=== PATIENT | male | born 1985 | race Caucasian/White ===

== ENCOUNTER 2025-03-09 08:46 | Emergency (ER) | payer BC, SELFPAY ==
--- NOTE | ~2025-03-09 | US_ITS ---
ADDENDUM #1 The previous report erroneously included two templates. The corrected report is as follows: EXAMINATION: US SCROTUM HISTORY: L sided scrotal pain and swelling. COMPARISON: There are no prior studies for comparison. FINDINGS: Real-time grayscale ultrasound imaging of the scrotum was performed. Color and spectral Doppler analysis was also performed. RIGHT TESTICLE: The right testis measures 4.7 x 2.3 x 3.0 cm and demonstrates normal homogeneous echotexture. No masses are seen. The right testis demonstrates normal arterial and venous color Doppler and spectral waveforms. RIGHT EPIDIDYMIS: Normal in size, shape, and vascularity. LEFT TESTICLE: The left testis measures 4.4 x 2.2 x 3.2 cm and demonstrates normal homogeneous echotexture. No masses are seen. The left testis demonstrates normal arterial and venous color Doppler and spectral waveforms. LEFT EPIDIDYMIS: Normal in size, shape, and vascularity. However, there is a somewhat tubular appearing structure adjacent to the epididymal head which appears slightly hypervascular and may represent an inflamed spermatic cord. VARICOCELE: None. HYDROCELE: No significant hydrocele is seen. OTHER COMMENTS: None. IMPRESSION: Possible inflamed spermatic cord adjacent to the left epididymal head. Otherwise unremarkable scrotal ultrasound. Electronically signed by: Saman Ortega MD 03/09/2025 12:03 PM EDT
--- NOTE | ~2025-03-09 | US_ITS ---
EXAMINATION: US SCROTUM HISTORY: L sided scrotal pain and swelling. COMPARISON: EXAMINATION: US SCROTUM HISTORY: L sided scrotal pain and swelling. COMPARISON: There are no prior studies for comparison. FINDINGS: Real-time grayscale ultrasound imaging of the scrotum was performed. Color and spectral Doppler analysis was also performed. RIGHT TESTICLE: The right testis measures 4.7 x 2.3 x 3.0 cm and demonstrates normal homogeneous echotexture. No masses are seen. The right testis demonstrates normal arterial and venous color Doppler and spectral waveforms. RIGHT EPIDIDYMIS: Normal in size, shape, and vascularity. LEFT TESTICLE: The left testis measures 4.4 x 2.2 x 3.2 cm and demonstrates normal homogeneous echotexture. No masses are seen. The left testis demonstrates normal arterial and venous color Doppler and spectral waveforms. LEFT EPIDIDYMIS: Normal in size, shape, and vascularity. However, there is a somewhat tubular appearing structure adjacent to the epididymal head which appears slightly hypervascular and may represent an inflamed spermatic cord. VARICOCELE: None. HYDROCELE: No significant hydrocele is seen. OTHER COMMENTS: None. US/US scrotum IMPRESSION: Possible inflamed spermatic cord adjacent to the left epididymal head. Otherwise unremarkable scrotal ultrasound. FINDINGS: Real-time grayscale ultrasound imaging of the scrotum was performed. RIGHT TESTICLE: The right testis measures cm and demonstrates normal homogeneous echotexture. No masses are seen. The right testis demonstrates normal color Doppler flow. RIGHT EPIDIDYMIS: Normal in size, shape, and vascularity. LEFT TESTICLE: The left testis measures cm and demonstrates normal homogeneous echotexture. No masses are seen. The left testis demonstrates normal color Doppler flow. LEFT EPIDIDYMIS: Normal in size, shape, and vascularity. VARICOCELE: None. HYDROCELE: No significant hydrocele is seen. OTHER COMMENTS: None. IMPRESSION: Unremarkable scrotal ultrasound. Electronically signed by: Saman Ortega MD 03/09/2025 11:38 AM EDT RP
[2025-03-09 08:49] VITALS: BP 194/104; PULSE 116; RESP 16; TEMP 36.8; O2SAT 100; BMI 22.9
--- NOTE | 2025-03-09 09:06 | ED_ITS ---
HPI - Male Genitourinary General Chief complaint: Urogenital-Male Stated complaint: Testicular issues Time Seen by Provider: 03/09/25 09:06 Source: patient, RN notes reviewed and old records reviewed Mode of arrival: ambulatory Limitations: no limitations History of Present Illness ED Provider: Morris SINGH Narrative: Patient is a 40-year-old male presenting to the emergency department with complaint of left sided scrotal pain since which has been progressively worsening. Denies difficulty urinating, dysuria, penile discharge. Denies rash/erythema. Denies fever. Denies new sexual partners or concern for STIs. Rates pain at 2/10 at rest, 10/10 with movement. Denies abdominal pain, nausea, vomiting. MD Complaint: testicle pain Onset (ago): day(s) Duration: progressively worsening Location: left testicle Quality: aching Exacerbating factors: palpation and movement Related Data Previous Rx's ?Medication ?Instructions ?Recorded levofloxacin 500 mg tablet 500 mg PO BID 10 days #20 tabs 03/09/25 Allergies Allergy/AdvReac Type Severity Reaction Status Date / Time No Known Allergies Allergy Verified 03/09/25 08:54 Review of Systems Review of Systems: As per HPI Yes all other systems are reviewed and are negative Constitutional: Constitutional: Reports as per HPI [facility] Social History Social History Smoked in Last 30 Days: No Use of substances other than those prescribed or required for medical reasons: No Advance Directives: No Advance Directives Information Provided: Yes Physical Exam Vital Signs: Vital Signs: Last Vital Signs Temp 98 F 03/09/25 13:13 Pulse 75 03/09/25 13:13 Resp 16 03/09/25 13:13 BP 129/76 03/09/25 13:13 Pulse Ox 100 03/09/25 13:13 O2 Del Method Room Air 03/09/25 13:13 BMI result Body Mass Index 22.9 Vital signs have been reviewed and appear to be correct. Blood pressure normal. Heart rate normal. Respiratory rate normal. Temperature normal. Oxygen saturation normal. Const: General: cooperative, healthy appearing and no acute distress Orientation/consciousness: oriented to person, oriented to place, oriented to time and patient oriented x3 Limitations: no limitations HEENT: Head: Yes normocephalic and Yes atraumatic Ears: external ears normal General nose exam: Normal external nose present Face and sinus: Yes face symmetric Mouth: oropharynx normal and moist mucous membranes Throat: Yes uvula midline Eyes: Pupils: Equal, round and reactive pupils present Neck: Neck: Yes normal visual inspection and Yes supple Resp: Effort & Inspection: normal respiratory effort and able to speak in complete sentences Auscultation: clear to auscultation bilaterally Cardio: Rate: regular rate Rhythm: regular rhythm Heart sounds: S1 normal heart sound present and S2 normal heart sound present GI: Palpation (GI): Soft to palpation and nontender Auscultation: normoactive bowel sounds : Other: Exam chaperoned by BEVERLY Phelps General: Yes no CVA tenderness Penis: normal penis Scrotum: scrotum normal, no ecchymosis, not edematous, not erythematous, testes descended bilaterally, no inguinal hernias, no masses and no scrotal swelling Testes: Testes normal, testicular lie normal, epididymal induration on the left and epididymal tenderness on the left Back/Spine/Pelvis: Back: no CVA tenderness Skin: General skin exam: elasticity normal and turgor normal Neuro: General: oriented to person, oriented to place, oriented to time, patient oriented x3, moves all extremities, no focal motor deficits and CN's II- XI intact bilaterally Cranial nerves: Yes Equal, round and reactive pupils present Cognition (Neuro): normal cognition Extrem: General: Yes full ROM, Yes no pedal edema and Yes no calf tenderness Psych: Mental Status: mental status grossly normal Affect: normal affect Thought process: Normal thought process present Medications Administered Discontinued Medications Generic Name Dose Route Start Last Admin Trade Name Freq PRN Reason Stop Dose Admin Ibuprofen 600 mg 03/09/25 09:33 03/09/25 09:38 Ibuprofen 600 Mg Tablet PO 03/09/25 09:34 600 mg ONCE ONE Administration Medical Decision Making Medical Decision Making [facility] Narrative: Patient is a 40-year-old male presenting to the emergency department with complaint of left sided scrotal pain since which has been progressively worsening. On exam patient is awake, A+Ox3, VS WNL, afebrile, normal neurological exam without focal deficits, physical exam findings as above. Given reported symptoms and physical exam findings, initial differential includes but is not limited to epididymitis, UTI, STI. Unlikely torsion. UA is without evidence of infection. Ultrasound notable for inflamed left spermatic cord. My interpretation is in agreement with the radiologist's interpretation. Will treat for epididymitis with levofloxacin as CT NG negative. Will refer to urology to follow up. Return precautions discussed. Patient verbalized understanding of and agreement with plan. Differential Diagnosis Differential Diagnoses: The differential diagnosis associated with the presentation includes As per [facility] Lab Data [facility] Lab Attestation statement: I reviewed the patient's lab results. As per [facility] Labs: Lab Results 03/09/25 Range/Units 10:20 Urine Color Yellow Urine Appearance Clear Urine pH 6.5 (5.0-9.0) Ur Specific [place] 1.015 (1.005-1.025) Urine Protein Negative (Neg-Trace) mg/dL Urine Glucose (UA) Negative (Negative) mg/dL Urine Ketones Trace (Negative) mg/dL Urine Blood Negative (Negative) Urine Nitrite Negative (Negative) Ur Leukocyte Esterase Negative (Negative) Chlam trachomat DNA PCR NOT DETECTED (Not Detect.) N.gonorrhoeae DNA (PCR) NOT DETECTED (Not Detect.) Independent Interpretation I performed an independent interpretation of an: Ultrasound Interpretation: Left inflamed spermatic cord on ultrasound. Radiology Impression Discussion of test interpretation with radiology: I have reviewed the radiologist's reading. Radiologist Impression: US/US scrotum IMPRESSION: Possible inflamed spermatic cord adjacent to the left epididymal head. Otherwise unremarkable scrotal ultrasound. External Record Review External record reviewed: Inpatient record, Office record and Outpatient record Prescription Management I considered prescription management with: Antibiotic Discharge Plan Discharge Clinical Impression: Epididymitis Patient Disposition: Home, Self-Care Instructions: Levofloxacin (By mouth), Epididymitis (ED) Additional Instructions: You were evaluated in the emergency department today for testicular pain. Your exam and ultrasound show evidence of epididymitis and you are being treated with antibiotics. Take the full course as prescribed even if your symptoms improve. We recommend that you follow up with Urology, call their office to schedule an appointment, they will not call you. We recommend 600 mg of ibuprofen or 650 mg Tylenol every 6 hours as needed for pain. If necessary, you can alternate these medications every 3 hours. For example, at 9:00 a.m. take Tylenol, then at noon take ibuprofen, then at 3:00 p.m. take Tylenol, etc.. Return to the emergency department if you develop worsening pain, fever, inability to urinate, penile discharge, or any other new or concerning symptoms. Prescriptions: New levofloxacin 500 mg tablet 500 mg PO BID 10 Days Qty: 20 0RF Referrals: [facility] [place] [facility] [Provider Group] - 1 week (Left epididymitis) Stand Alone Forms: Work/School Release Print Language: Cameroonian
[2025-03-09] MEDS: Ibuprofen 600 MG TABLET PO (09:38)
[2025-03-09 10:12] VITALS: BP 138/91; PULSE 76; RESP 16; TEMP 36.6; O2SAT 98
[2025-03-09 10:28] LABS: Appearance Urine Clear; Color Urine Yellow; Glucose Urine UA Negative (Negative); Leukocyte Esterase Urine Negative (Negative); Nitrite Urine Negative (Negative); PH 6.5 (5.0-9.0); Specific Gravity - Urine 1.015 (1.005-1.025); Urine Blood Negative (Negative); Urine Ketones Trace mg/dL (Negative); Urine Protein Negative (Neg-Trace)
[2025-03-09 12:18] LABS: CT PCR NOT DETECTED (Not Detect.); NG PCR NOT DETECTED (Not Detect.)
--- NOTE | 2025-03-09 12:22 | PC.NURSE ---
Pt resting quietly in room; denies pain at this time; awaiting dispo; will cont to treat per orders
[2025-03-09 13:13] VITALS: BP 129/76; PULSE 75; RESP 16; TEMP 36.6; O2SAT 100
== END 2025-03-09 13:39 | disposition home or self-care (01) ==
PROVIDERS: Emergency Provider Emergency Medicine
DX: N45.1 Epididymitis (principal); N50.82 Scrotal pain
CPT/HCPCS: 76870; 81003; 87491; 87591; 93975; 99284

== ENCOUNTER → 2025-03-09 08:56 | Outpatient (BNV) | payer BC, SELFPAY | PROVIDERS: Emergency Provider Emergency Medicine; Visit Provider Radiology Diagnostic Radiology | DX: N50.82 Scrotal pain (principal) | CPT/HCPCS: 76870; 93975 ==

== ENCOUNTER 2025-05-24 14:34 | Outpatient (REF) | payer BC, SELFPAY | END 2025-05-24 14:35 | disposition home or self-care (01) | LOC: HO.LNP 14:34 | PROVIDERS: Visit Provider Nurse Practitioner Family | DX: R31.29 Other microscopic hematuria (principal) | CPT/HCPCS: 81003; 88112 ==

== ENCOUNTER 2025-05-24 14:34 | Outpatient (AMB) | payer BC, SELFPAY ==
--- NOTE | 2025-05-24 14:59 | MHC.OFFVIS ---
Intake Visit Reasons: epidiymitis Intake Note: New Patient presents for initial visit for epididymitis Urology Medications: none Blood Thinner: none Sr. Logistics Analyst Required: No Accompanied by: Self / Same As Patient Allergies No Known Allergies Allergy (Verified 05/24/25 15:33) Medication List - Last Reconciled 05/24/25 by ELIANE Dorantes No Known Home Meds HPI Comments Details: Wilfred is a very pleasant 40-year-old male patient. He presents to the office today as a new patient for epididymitis. In discussion with the patient today he reports having seeked emergency room care approximately 3 months ago for ongoing left-sided scrotal pain he had been experiencing at which time a scrotal ultrasound was ordered and performed. These results were reviewed and communicated with the patient today 03/18 possible inflamed spermatic cord adjacent to the left epididymal head. Otherwise unremarkable scrotal ultrasound. He reports he completed antibiotic therapy of levofloxacin as prescribed. He reports pain has significantly improved however he does feel he continues to experience episodes of left-sided scrotal discomfort with running. On exam today the penis is uncircumcised. There are no open areas, lesions, or masses palpated throughout the area. There was left-sided epididymal head tenderness noted with small epididymal head cyst otherwise no pain elicited on exam. In office urinalysis results reviewed with the patient today. He reports he is not currently sexually active. It appears STI workup was ordered and performed and within normal limits. When asked he denies urinary urgency, urinary frequency, incontinence, nocturia, hematuria, dysuria, foul smelling urine, changes to urinary stream, flank pain, fever, and or chills. He is happy with his current voiding parameters. He denies any abdominal pain, nausea, and or vomiting. He otherwise offers no other issues or concerns at this time. Review of Systems Const All systems reviewed & are unremarkable except as noted in HPI and below Physical Exam Const General: cooperative, healthy appearing, comfortable, no acute distress, well developed, alert and awake Nutritional Appearance: average body habitus Orientation/consciousness: patient oriented x3 Limitations: no limitations HEENT Head: Yes normal to inspection, Yes normocephalic and Yes atraumatic Ears: hearing grossly normal bilaterally Eyes General: appearance normal, both eyes and all related structures Neck Neck: Yes normal visual inspection and Yes trachea midline Chest Chest palpation & inspection: normal inspection of the chest Resp Effort & Inspection: normal respiratory effort and able to speak in complete sentences Cardio Rate: regular rate GI Inspection: Yes normal to inspection General: Yes no CVA tenderness Male General Exam: Yes normal external exam Penis: normal penis and uncircumcised Meatus: meatus normal Scrotum: Varicocele present on the left Testes: other (as per HPI) Back/Spine/Pelvis Back: no CVA tenderness Skin General skin exam: no rashes or lesions noted Neuro General: patient oriented x3 Extrem General: Yes normal to inspection Psych Appearance: grossly normal and well kempt Mental Status: mental status grossly normal Speech and movement: Normal speech and movement present and Clear speech present Affect: normal affect Attitude: cooperative Thought process: Normal thought process present Thought content: Normal thought content present Insight: Fair insight present (Psych) Judgement: Fair judgement present (Psych) Results AMB Urinalysis, Automated UA Leukoctes 0 Carlos/uL Last Edit by [facility] on 05/24/25 15:18 UA Nitrite Last Edit by [facility] on 05/24/25 15:18 UA Urobilinogen 0.2 mg/dL Last Edit by [facility] on 05/24/25 15:18 UA Protein 0 mg/dL Last Edit by [facility] on 05/24/25 15:18 UA pH 6.5 Last Edit by [facility] on 05/24/25 15:18 UA Blood 10 Uziel/uL Last Edit by [facility] on 05/24/25 15:18 UA Specific [place] 1.010 Last Edit by [facility] on 05/24/25 15:18 UA Ketone Last Edit by [facility] on 05/24/25 15:18 UA Bilirubin 0 mg/dL Last Edit by [facility] on 05/24/25 15:18 UA Glucose 0 mg/dL Last Edit by [facility] on 05/24/25 15:18 Results Reviewed Results Reviewed: Laboratory Last Values Urine pH (Auto) 6.5 05/24/25 15:02 Specific [place] (Auto) 1.010 05/24/25 15:02 Urine Protein (Auto) 0 mg/dL 05/24/25 15:02 Glucose (UA)(Auto) 0 mg/dL 05/24/25 15:02 Urine Blood (Auto) 10 Uziel/uL 05/24/25 15:02 Urine Bilirubin (Auto) 0 mg/dL 05/24/25 15:02 Urine Urobilinogen (Auto) 0.2 mg/dL 05/24/25 15:02 Leukocyte Esterase (Auto) 0 Carlos/uL 05/24/25 15:02 EXAMINATION: US SCROTUM HISTORY: L sided scrotal pain and swelling. COMPARISON: There are no prior studies for comparison. FINDINGS: Real-time grayscale ultrasound imaging of the scrotum was performed. Color and spectral Doppler analysis was also performed. RIGHT TESTICLE: The right testis measures 4.7 x 2.3 x 3.0 cm and demonstrates normal homogeneous echotexture. No masses are seen. The right testis demonstrates normal arterial and venous color Doppler and spectral waveforms. RIGHT EPIDIDYMIS: Normal in size, shape, and vascularity. LEFT TESTICLE: The left testis measures 4.4 x 2.2 x 3.2 cm and demonstrates normal homogeneous echotexture. No masses are seen. The left testis demonstrates normal arterial and venous color Doppler and spectral waveforms. LEFT EPIDIDYMIS: Normal in size, shape, and vascularity. However, there is a somewhat tubular appearing structure adjacent to the epididymal head which appears slightly hypervascular and may represent an inflamed spermatic cord. VARICOCELE: None. HYDROCELE: No significant hydrocele is seen. OTHER COMMENTS: None. IMPRESSION: Possible inflamed spermatic cord adjacent to the left epididymal head. Otherwise unremarkable scrotal ultrasound. Assessment & Plan Assessment & Plan (1) Epididymitis: Code(s): N45.1 - Epididymitis Category: Medical Plan In office urinalysis results reviewed with the patient today; as noted above. Recent scrotal ultrasound results reviewed with the patient today; as noted above. Patient reports significant improvement in scrotal discomfort however does feel he is limited with exertional exercise. We discussed wearing supportive underwear. He currently denies any bothersome urinary issues or concerns. He reports be happy with current voiding parameters. Will continue with surveillance monitoring at this time. Follow-up in 1-2 months; or sooner with any issues, concerns, and or questions. Orders: Orders AMB Urinalysis Automated Today Z13.9 - Encounter for screening, unspecified Medications: Discontinued levofloxacin Discontinued Reason: Patient Completed Course 500 mg PO BID 10 days 20 tabs 0RF Patient Instructions: The patient had an opportunity to ask questions regarding the treatment plan. All questions were answered. Physical exam, labs, and imaging were discussed and reviewed in detail. As well as risks, benefits, and discussion of treatment choices. No major barriers to understanding were identified. The patient expressed understanding and agreement with the above treatment plan. The patient was made aware they should contact our office by phone for worsening of their current condition, the appearance of new symptoms, or with any questions or concerns. Compliance is encouraged with any medications and follow up testing that is ordered. It is a privilege to be allowed the opportunity to participate in? your urological care.? Again, if you have any questions or concerns If you have any questions or concerns please do not hesitate to contact me. The office is [phone]. This note is constructed using voice recognition software. While every effort has been made to ensure accuracy hospital scientist errors may have been included. Yours sincerely, ELIANE Dorantes Coding Level of Care Code New Pt Level 3 (25768) Diagnoses Epididymitis N45.1
== END 2025-05-24 15:33 | disposition home or self-care (01) ==
LOC: HO.HUSH 14:35
PROVIDERS: Visit Provider Nurse Practitioner Family
DX: N45.1 Epididymitis (principal); Z13.9 Encounter for screening, unspecified
CPT/HCPCS: 99203

== ENCOUNTER 2025-06-30 14:18 | Outpatient (AMB) | payer BC, SELFPAY ==
--- NOTE | 2025-06-30 14:28 | A.OFFVIS_ITS ---
Intake Visit Reasons: 1m follow up Intake Note: Patient is present for 1M F/U Urology Medication:NONE Antibiotic Allergy:NONE Blood Thinner:NONE Copy Holder Required: No Allergies No Known Allergies Allergy (Verified 06/30/25 21:59) Medication List - Last Reconciled 06/30/25 by ELIANE Dorantes doxycycline hyclate 100 mg PO BID 14 days HPI Comments Details: Wilfred is a very pleasant 40-year-old male patient. He presents to the office today for follow-up of his epididymitis. In discussion with the patient today he does continue to experience episodes of left-sided testicular discomfort. In assessment of the patient today the penis is uncircumcised and patient with moderate discomfort upon palpation of left epididymis otherwise no open areas, lesions, and or masses palpated throughout the area. He does continue to feel he is restricted with exercise. He reports discomfort is intermittent however he does feel it has been manageable. He reports he continues to utilize heat and ice and does feel this has also been helpful. In office urinalysis results reviewed with the patient today. Previous workup has included a scrotal ultrasound 03/18 possible inflamed spermatic cord adjacent to the left epididymal head. Otherwise unremarkable scrotal ultrasound. He reports he completed antibiotic therapy of levofloxacin as prescribed. He reports pain has significantly improved however he does feel he continues to experience episodes of left-sided scrotal discomfort with running/ercises or at times prolonged sitting. He reports he is not currently sexually active. It appears STI workup was ordered and performed and within normal limits. When asked he denies urinary urgency, urinary frequency, incontinence, nocturia, hematuria, dysuria, foul smelling urine, changes to urinary stream, flank pain, fever, and or chills. He is happy with his current voiding parameters. He denies any abdominal pain, nausea, and or vomiting. He otherwise offers no other issues or concerns at this time. Review of Systems Const All systems reviewed & are unremarkable except as noted in HPI and below Physical Exam Const General: cooperative, healthy appearing, comfortable, no acute distress, well developed, alert and awake Nutritional Appearance: average body habitus Orientation/consciousness: patient oriented x3 Limitations: no limitations HEENT Head: Yes normal to inspection, Yes normocephalic and Yes atraumatic Ears: hearing grossly normal bilaterally Eyes General: appearance normal, both eyes and all related structures Neck Neck: Yes normal visual inspection and Yes trachea midline Chest Chest palpation & inspection: normal inspection of the chest Resp Effort & Inspection: normal respiratory effort and able to speak in complete sentences Cardio Rate: regular rate GI Inspection: Yes normal to inspection General: Yes no CVA tenderness Male General Exam: Yes normal external exam Penis: normal penis and uncircumcised Meatus: meatus normal Scrotum: Varicocele present on the left Testes: other (as per HPI) Back/Spine/Pelvis Back: no CVA tenderness Skin General skin exam: no rashes or lesions noted Neuro General: patient oriented x3 Extrem General: Yes normal to inspection Psych Appearance: grossly normal and well kempt Mental Status: mental status grossly normal Speech and movement: Normal speech and movement present and Clear speech present Affect: normal affect Attitude: cooperative Thought process: Normal thought process present Thought content: Normal thought content present Insight: Fair insight present (Psych) Judgement: Fair judgement present (Psych) Results AMB Urinalysis, Automated UA Leukoctes 0 Carlos/uL Last Edit by KANDIS Keith on 06/30/25 14:50 UA Nitrite Negative Last Edit by KANDIS Keith on 06/30/25 14:50 UA Urobilinogen 0.2 mg/dL Last Edit by KANDIS Keith on 06/30/25 14:5 0 UA Protein 0 mg/dL Last Edit by Naren Church CCM on 06/30/25 14:50 UA pH 6.0 Last Edit by Naren Church CCM on 06/30/25 14:50 UA Blood 0 Uziel/uL Last Edit by Naren Church CCM on 06/30/25 14:50 UA Specific [place] 1.010 Last Edit by KANDIS Keith on 06/30/25 14: 50 UA Ketone Negative Last Edit by KANDIS Keith on 06/30/25 14:50 UA Bilirubin 0 mg/dL Last Edit by Naren Church CCM on 06/30/25 14:50 UA Glucose 0 mg/dL Last Edit by Naren Church CCM on 06/30/25 14:50 Results Reviewed Results Reviewed: Laboratory Last Values Urine pH (Auto) 6.0 06/30/25 14:49 Specific [place] (Auto) 1.010 06/30/25 14:49 Urine Protein (Auto) 0 mg/dL 06/30/25 14:49 Glucose (UA)(Auto) 0 mg/dL 06/30/25 14:49 Urine Ketones (Auto) Negative 06/30/25 14:49 Urine Blood (Auto) 0 Uziel/uL 06/30/25 14:49 Urine Nitrite (Auto) Negative 06/30/25 14:49 Urine Bilirubin (Auto) 0 mg/dL 06/30/25 14:49 Urine Urobilinogen (Auto) 0.2 mg/dL 06/30/25 14:49 Leukocyte Esterase (Auto) 0 Carlos/uL 06/30/25 14:49 Assessment & Plan Assessment & Plan (1) Epididymitis: Code(s): N45.1 - Epididymitis Category: Medical Plan In office urinalysis results with the patient today; as noted above. We discussed epididymitis Start doxycycline as discussed and prescribed. We discussed OTC measures. All questions were answered. We discussed worsening symptoms He denies any bothersome urinary issues He reports be happy with current voiding parameters. Follow-up in 1 month; or sooner with any issues, concerns, and or questions. Orders: Orders AMB Urinalysis Automated Today Z13.9 - Encounter for screening, unspecified Medications: New doxycycline hyclate 100 mg PO BID 28 tabs 0RF 14 days N39.0 - Urinary tract infection, site not specified, N45.1 - Epididymitis Patient Instructions: The patient had an opportunity to ask questions regarding the treatment plan. All questions were answered. Physical exam, labs, and imaging were discussed and reviewed in detail. As well as risks, benefits, and discussion of treatment choices. No major barriers to understanding were identified. The patient expressed understanding and agreement with the above treatment plan. The patient was made aware they should contact our office by phone for worsening of their current condition, the appearance of new symptoms, or with any questions or concerns. Compliance is encouraged with any medications and follow up testing that is ordered. It is a privilege to be allowed the opportunity to participate in? your urological care.? Again, if you have any questions or concerns If you have any questions or concerns please do not hesitate to contact me. The office is [phone]. This note is constructed using voice recognition software. While every effort has been made to ensure accuracy warehouse operator errors may have been included. Yours sincerely, ELIANE Dorantes Coding Level of Care Code Est Pt Level 4 (56815) Diagnoses Epididymitis N45.1
== END 2025-06-30 15:11 | disposition home or self-care (01) ==
LOC: HO.HUSH 14:18
PROVIDERS: Visit Provider Nurse Practitioner Family
DX: N45.1 Epididymitis (principal); Z13.9 Encounter for screening, unspecified
CPT/HCPCS: 99214

== ENCOUNTER → 2025-06-30 14:18 | Outpatient (BNVA) | payer BC, SELFPAY | PROVIDERS: Visit Provider Nurse Practitioner Family | DX: N45.1 Epididymitis (principal) | CPT/HCPCS: 81003 ==

== ENCOUNTER 2025-08-10 15:34 | Outpatient (AMB) | payer BC, SELFPAY ==
--- NOTE | 2025-08-10 15:40 | MHC.OFFVIS ---
Intake Visit Reasons: 1m follow up Intake Note: Patient is present for 1M F/U Urology Medication:NONE Antibiotic Allergy:NONE Blood Thinner:NONE Director Career Services Required: No Allergies No Known Allergies Allergy (Verified 08/10/25 20:49) Medication List - Last Reconciled 08/10/25 by ELIANE Dorantes No Known Home Meds HPI Comments Details: Wilfred is a very pleasant 40-year-old male patient. He presents to the office today for follow-up of his epididymitis. In discussion with the patient today he does continue to experience episodes of left-sided testicular discomfort however describes these episodes as infrequent and feels symptoms have significantly improved since initial presentation. Previous workup has included a scrotal ultrasound 03/18 possible inflamed spermatic cord adjacent to the left epididymal head. Otherwise unremarkable scrotal ultrasound. He reports he completed antibiotic therapy as prescribed. He reports pain has significantly improved however he does feel he continues to experience episodes of left-sided scrotal discomfort with running/exercises or at times prolonged sitting. He reports he is not currently sexually active. It appears STI workup was ordered and performed and within normal limits. When asked he denies urinary urgency, urinary frequency, incontinence, nocturia, hematuria, dysuria, foul smelling urine, changes to urinary stream, flank pain, fever, and or chills. He is happy with his current voiding parameters. He denies any abdominal pain, nausea, and or vomiting. He otherwise offers no other issues or concerns at this time. Review of Systems Const All systems reviewed & are unremarkable except as noted in HPI and below Physical Exam Const General: cooperative, healthy appearing, comfortable, no acute distress, well developed, alert and awake Nutritional Appearance: average body habitus Orientation/consciousness: patient oriented x3 Limitations: no limitations HEENT Head: Yes normal to inspection, Yes normocephalic and Yes atraumatic Ears: hearing grossly normal bilaterally Eyes General: appearance normal, both eyes and all related structures Neck Neck: Yes normal visual inspection and Yes trachea midline Chest Chest palpation & inspection: normal inspection of the chest Resp Effort & Inspection: normal respiratory effort and able to speak in complete sentences Cardio Rate: regular rate GI Inspection: Yes normal to inspection General: Yes no CVA tenderness Male General Exam: Yes normal external exam Penis: normal penis and uncircumcised Meatus: meatus normal Scrotum: Varicocele present on the left Testes: other (as per HPI) Back/Spine/Pelvis Back: no CVA tenderness Skin General skin exam: no rashes or lesions noted Neuro General: patient oriented x3 Extrem General: Yes normal to inspection Psych Appearance: grossly normal and well kempt Mental Status: mental status grossly normal Speech and movement: Normal speech and movement present and Clear speech present Affect: normal affect Attitude: cooperative Thought process: Normal thought process present Thought content: Normal thought content present Insight: Fair insight present (Psych) Judgement: Fair judgement present (Psych) Results AMB Urinalysis, Automated UA Leukoctes 0 Carlos/uL Last Edit by KANDIS Keith on 08/10/25 16:43 UA Nitrite Negative Last Edit by Naren Church CCM on 08/10/25 16:43 UA Urobilinogen 0.2 mg/dL Last Edit by Naren Church CCM on 08/10/25 16:43 UA Protein 0 mg/dL Last Edit by Naren Church [facility] on 08/10/25 16:43 UA pH 6.0 Last Edit by Naren Church [facility] on 08/10/25 16:43 UA Blood 0 Uziel/uL Last Edit by Naren Church CCM on 08/10/25 16:43 UA Specific [place] 1.005 Last Edit by Naren Church CCM on 08/10/25 16:43 UA Ketone Negative Last Edit by Naren Church CCM on 08/10/25 16:43 UA Bilirubin 0 mg/dL Last Edit by Naren Church [facility] on 08/10/25 16:43 UA Glucose 0 mg/dL Last Edit by Naren Church [facility] on 08/10/25 16:43 Results Reviewed Results Reviewed: Laboratory Last Values Urine pH (Auto) 6.0 08/10/25 16:43 Specific [place] (Auto) 1.005 08/10/25 16:43 Urine Protein (Auto) 0 mg/dL 08/10/25 16:43 Glucose (UA)(Auto) 0 mg/dL 08/10/25 16:43 Urine Ketones (Auto) Negative 08/10/25 16:43 Urine Blood (Auto) 0 Uziel/uL 08/10/25 16:43 Urine Nitrite (Auto) Negative 08/10/25 16:43 Urine Bilirubin (Auto) 0 mg/dL 08/10/25 16:43 Urine Urobilinogen (Auto) 0.2 mg/dL 08/10/25 16:43 Leukocyte Esterase (Auto) 0 Carlos/uL 08/10/25 16:43 Assessment & Plan Assessment & Plan (1) Epididymitis: Code(s): N45.1 - Epididymitis Category: Medical Plan In office urinalysis results with the patient today; as noted above. We discussed epididymitis We discussed OTC measures. All questions were answered. We discussed worsening symptoms He denies any bothersome urinary issues He reports be happy with current voiding parameters. Follow-up PRN Orders: Orders AMB Urinalysis Automated Today Z13.9 - Encounter for screening, unspecified Patient Instructions: The patient had an opportunity to ask questions regarding the treatment plan. All questions were answered. Physical exam, labs, and imaging were discussed and reviewed in detail. As well as risks, benefits, and discussion of treatment choices. No major barriers to understanding were identified. The patient expressed understanding and agreement with the above treatment plan. The patient was made aware they should contact our office by phone for worsening of their current condition, the appearance of new symptoms, or with any questions or concerns. Compliance is encouraged with any medications and follow up testing that is ordered. It is a privilege to be allowed the opportunity to participate in? your urological care.? Again, if you have any questions or concerns If you have any questions or concerns please do not hesitate to contact me. The office is [phone]. This note is constructed using voice recognition software. While every effort has been made to ensure accuracy business rules developer errors may have been included. Yours sincerely, ELIANE Dorantes Coding Level of Care Code Est Pt Level 3 (71621) Diagnoses Epididymitis N45.1
== END 2025-08-10 16:07 | disposition home or self-care (01) ==
LOC: HO.HUSH 15:35
PROVIDERS: Visit Provider Nurse Practitioner Family
DX: N45.1 Epididymitis (principal); Z13.9 Encounter for screening, unspecified
CPT/HCPCS: 99213

== ENCOUNTER → 2025-08-10 15:34 | Outpatient (BNVA) | payer BC, SELFPAY | PROVIDERS: Visit Provider Nurse Practitioner Family | DX: N45.1 Epididymitis (principal) | CPT/HCPCS: 81003 ==